=== PATIENT | female | born 1955 | race Caucasian/White ===

== ENCOUNTER 2021-01-23 09:47 | Emergency (ER) | payer MEDICARE ==
--- NOTE | 2021-01-23 09:58 | EDM.PDOC ---
ED HPI GENERAL MEDICAL PROBLEM - General Chief Complaint: Respiratory Problem Stated Complaint: PT IS HAVING A HARD TIME BREATHING Time Seen by Provider: 01/23/21 09:55 - History of Present Illness INITIAL COMMENTS - FREE TEXT/NARRATIVE: History of present illness: [] This patient has been feeling sick with headache hip pain shortness of breath and weakness since 14 January. She says on 19 January she was diagnosed positive for COVID-19. She was not vaccinated. She has had monoclonal antibody infusion already because she has COPD and is 65 years of age. The patient has a and children in her house they can help take care of her but says she has some difficulty walking because of the pain and weakness. She stopped smoking this week because it was irritating her. She has been a long-term smoker. Review of systems: As per history of present illness and below otherwise all systems reviewed and negative. Past medical history: As per history of present illness and as reviewed below otherwise noncontributory. Surgical history: As per history of present illness and as reviewed below otherwise noncontributory. Social history: No reported history of drug or alcohol abuse. Family history: As per history of present illness and as reviewed below otherwise noncontributory. Physical exam: Constitutional - well developed, well-nourished and in no acute distress HEENT - normocephalic, no evidence of trauma - external nose and mouth normal - no mass in neck and no JVD - mucosae moist EYES - full EOM, PERRL, no icterus - no evidence of inflammation, injection, or drainage Respiratory - no respiratory distress, equal bilateral expansion, lungs clear to auscultation and no abnormal lung sounds Cardiovascular - Regular Rhythm with S1 and S2 appreciated and no murmur, gallop or rub. GI - abdomen soft without distension or organomegaly - normal bowel sounds - no guard or rebound Musculoskeletal no gross deformity of long bones or joints - no tenderness, swelling or edema Neurologic - Alert and oriented times four - CN II-XII grossly intact - motor sensory and coordination symmetrically normal Psychiatric - appropriate mood and affect with normal thought content Hematologic - No petechiae or purpura - mucosa appropriate color and sclera not pale - normal nail bed color and refill Integument - no rash or evidence of trauma - normal turgor Diagnostics: [] Therapeutics: [] Impression: [] Plan: [] Definitive disposition and diagnosis as appropriate pending reevaluation and review of above. left hip Pain Score (Numeric/FACES): 6 - Related Data Allergies Allergy/AdvReac Type Severity Reaction Status Date / Time codeine Allergy Vomiting Verified 01/23/21 09:59 Penicillins Allergy Hives Verified 01/23/21 09:59 procaine HCl [From Novocain] Allergy Cannot Verified 01/23/21 09:59 Remember propoxyphene HCl Allergy Vomiting Verified 01/23/21 09:59 [From Darvon] Home Meds: Home Meds Aspirin [Ecotrin EC] 325 mg PO DAILY 04/23/14 [History] Clopidogrel [Plavix] 75 mg PO DAILY 04/23/14 [History] Diltiazem [Cardizem CD] 120 mg PO DAILY 04/23/14 [History] Pravastatin [Pravachol] 20 mg PO BEDTIME 04/23/14 [History] Ranitidine [Zantac] 150 mg PO DAILY 04/23/14 [History] oxyCODONE HCl/Acetaminophen [Percocet 10-325 MG] 1 tab PO Q6HR PRN 04/23/14 [History] levoFLOXacin [Levaquin] 500 mg PO Q24H #5 tablet 04/24/14 [Rx] ED ROS GENERAL - Review of Systems Review Of Systems: Comprehensive ROS is negative, except as noted in HPI. ED EXAM, GENERAL - Physical Exam Exam: See Below Free Text/Narrative:: My physical exam is in the HPI #1 Interpretation EKG Interpretation Comments: EKG performed 01/23/2021 at 9:59 AM sinus rhythm heart rate 85 WA 149 axis -11 inferior Q waves normal ST and T. Compared to 04/23/2014 no change impression no acute injury Course - Vital Signs Text/Narrative:: The patient clearly feels weak and sick enough that she feels like she should be on oxygen or admitted. At this point her oxygen saturation does not meet the criteria for home oxygen. She is already had monoclonal antibodies. If the patient has had a pulmonary embolus or AR or some other reason compelling us to admit the patient I am happy to do so and will leave her off oxygen and if her oxygen drops enough that she qualifies we can arrange home oxygen. Otherwise I am not sure there is much I can do other than tell her that there is no magic treatment for COVID-19 infections. This patient was seen and evaluated during the 2019 SARS-CoV-2 novel coronavirus pandemic period. Community viral transmission is ongoing at time of this encounter and the emergency department is operating under pandemic response procedures. 1440 3 PM this patient wants to be admitted and wants oxygen. She did not qualify for either. I did find a positive D-dimer and thought we might admit her for pulmonary embolus but her CT fails to reveal that. She feels miserable because of COVID-19 pneumonia. She in the community her best served if she will stay home and take care of her self unless he deteriorates. Last Recorded V/S: Last Vital Signs Temp 36.0 C L 01/23/21 13:01 Pulse 61 01/23/21 13:01 Resp 20 01/23/21 13:01 BP 125/70 01/23/21 13:01 Pulse Ox 94 L 01/23/21 13:01 - Orders/Labs/Meds Orders: Active Orders 24 hr Category Date Time Status EKG Documentation Completion [RC] AM Care 01/23/21 09:56 Active Sodium Chloride 0.9% [Saline Flush] Med 01/23/21 09:56 Active 10 ml FLUSH ASDIRECTED PRN Sodium Chloride 0.9% [Saline Flush] Med 01/23/21 09:56 Active 2.5 ml FLUSH ASDIRECTED PRN Saline Lock Insert [OM.PC] Stat Oth 01/23/21 09:56 Ordered Medication Orders Sodium Chloride (Sodium Chloride 0.9% 10 Ml Syringe) 10 ml FLUSH ASDIRECTED PRN PRN Reason: Keep Vein Open Last Admin: 01/23/21 12:58 Dose: 10 ml Documented by: Admin: 01/23/21 11:43 Dose: 10 ml Documented by: AZIZA Sodium Chloride (Sodium Chloride 0.9% 2.5 Ml Syringe) 2.5 ml FLUSH ASDIRECTED PRN PRN Reason: Keep Vein Open Last Admin: 01/23/21 12:59 Dose: 2.5 ml Documented by: Admin: 01/23/21 11:44 Dose: 2.5 ml Documented by: AZIZA Labs: Laboratory Tests 01/23/21 01/23/21 01/23/21 Range/Units 09:50 09:50 09:50 WBC 4.37 (4.0-11.0) K/uL RBC 5.71 (4.30-5.90) M/uL Hgb 17.9 H (12.0-16.0) g/dL Hct 50.8 H (36.0-46.0) % MCV 89.0 (80.0-98.0) fL MCH 31.3 (27.0-32.0) pg MCHC 35.2 (31.0-37.0) g/dL RDW Std Deviation 47.9 (28.0-62.0) fl RDW Coeff of Patt 15 (11.0-15.0) % Plt Count 108 L (150-400) K/uL MPV 10.90 (7.40-12.00) fL Neut % (Auto) 53.7 (48.0-80.0) % Lymph % (Auto) 31.4 (16.0-40.0) % [place] % (Auto) 13.0 (0.0-15.0) % Eos % (Auto) 1.4 (0.0-7.0) % Baso % (Auto) 0.5 (0.0-1.5) % Neut # (Auto) 2.4 (1.4-5.7) K/uL Lymph # (Auto) 1.4 (0.6-2.4) K/uL [place] # (Auto) 0.6 (0.0-0.8) K/uL Eos # (Auto) 0.1 (0.0-0.7) K/uL Baso # (Auto) 0.0 (0.0-0.1) K/uL Nucleated RBC % 0.0 /100WBC Nucleated RBCs # 0 K/uL D-Dimer, Quantitative 0.75 H (0.0-0.50) mg/L FEU Sodium 141 (136-145) mmol/L Potassium 3.3 L (3.5-5.1) mmol/L Chloride 102 (98-107) mmol/L Carbon Dioxide 26.7 (21.0-32.0) mmol/L BUN 7 (7.0-18.0) mg/dL Creatinine 0.9 (0.6-1.0) mg/dL Est Cr Clr Drug Dosing 54.53 mL/min Estimated GFR (MDRD) > 60.0 ml/min Glucose 122 H (74-106) mg/dL Calcium 8.2 L (8.5-10.1) mg/dL Total Bilirubin 0.4 (0.2-1.0) mg/dL AST 76 H (15-37) IU/L ALT 51 (14-63) IU/L Alkaline Phosphatase 140 H (46-116) U/L Troponin I < 0.050 (0.000-0.056) ng/mL Total Protein 7.6 (6.4-8.2) g/dL Albumin 3.4 (3.4-5.0) g/dL Globulin 4.2 H (2.6-4.0) g/dL Albumin/Globulin Ratio 0.8 L (0.9-1.6) Meds: Medications Generic Name Dose Route Start Last Admin Trade Name Freq PRN Reason Stop Dose Admin Sodium Chloride 10 ml 01/23/21 09:56 01/23/21 12:58 Sodium Chloride 0.9% 10 Ml Syringe FLUSH 10 ml ASDIRECTED PRN Administration Keep Vein Open Sodium Chloride 2.5 ml 01/23/21 09:56 01/23/21 12:59 Sodium Chloride 0.9% 2.5 Ml Syringe FLUSH 2.5 ml ASDIRECTED PRN Administration Keep Vein Open Discontinued Medications Generic Name Dose Route Start Last Admin Trade Name Freq PRN Reason Stop Dose Admin Iopamidol 75 ml 01/23/21 12:48 01/23/21 12:49 Iopamidol 755 Mg/Ml 500 Ml Multipack Bottle IVPUSH 01/23/21 12:49 75 ml ONETIME STA Administration Ketorolac Tromethamine 15 mg 01/23/21 11:58 01/23/21 12:58 Ketorolac 30 Mg/Ml Sdv IVPUSH 01/23/21 11:59 15 mg ONETIME ONE Administration Departure - Departure Time of Disposition: 14:22 Disposition: Home, Self-Care 01 Clinical Impression: Pneumonia due to COVID-19 virus, Osteoarthritis of left hip - Discharge Information Referrals: PCP,None [Ordering Only Provider] - Forms: ED Department Discharge Additional Instructions: [facility] - Primary Care [address] [place] [id number] [facility] [address] [place] [id number] The following information is given to patients seen in the emergency department who are being discharged to home. This information is to outline your options for follow-up care. We provide all patients seen in our emergency department with a follow-up referral. The need for follow-up, as well as the timing and circumstances, are variable depending upon the specifics of your emergency department visit. If you don't have a primary care physician on staff, we will provide you with a referral. We always advise you to contact your personal physician following an emergency department visit to inform them of the circumstance of the visit and for follow-up with them and/or the need for any referrals to a consulting specialist. The emergency department will also refer you to a specialist when appropriate. This referral assures that you have the opportunity for follow-up care with a specialist. All of these measure are taken in an effort to provide you with optimal care, which includes your follow-up. Under all circumstances we always encourage you to contact your private physician who remains a resource for coordinating your care. When calling for follow-up care, please make the office aware that this follow-up is from your recent emergency room visit. If for any reason you are refused follow-up, please contact the [facility] Emergency Department at and asked to speak to the emergency department charge nurse. Sepsis Event Note (ED) - Focused Exam Vital Signs: Vital Signs Temp Pulse Resp BP Pulse Ox 01/23/21 13:01 36.0 C L 61 20 125/70 94 L 01/23/21 11:41 35.8 C L 61 22 H 108/68 93 L 01/23/21 11:00 59 L 93 L 01/23/21 10:40 74 93 L 01/23/21 10:10 68 92 L 01/23/21 09:54 36.4 C 98 18 155/83 H 91 L - My Orders Last 24 Hours: My Active Orders 01/23/21 09:56 EKG Documentation Completion [RC] AM Sodium Chloride 0.9% [Saline Flush] 10 ml FLUSH ASDIRECTED PRN Sodium Chloride 0.9% [Saline Flush] 2.5 ml FLUSH ASDIRECTED PRN Saline Lock Insert [OM.PC] Stat - Assessment/Plan Last 24 Hours: My Active Orders 01/23/21 09:56 EKG Documentation Completion [RC] AM Sodium Chloride 0.9% [Saline Flush] 10 ml FLUSH ASDIRECTED PRN Sodium Chloride 0.9% [Saline Flush] 2.5 ml FLUSH ASDIRECTED PRN Saline Lock Insert [OM.PC] Stat
[2021-01-23 10:41] LABS: BLOOD UREA NITROGEN,BUN 7 mg/dL (7.0-18.0); CARBON DIOXIDE,CO2 26.7 mmol/L (21.0-32.0); CHLORIDE,CL 102 mmol/L (98-107); GLUCOSE RANDOM 122 mg/dL (74-106); POTASSIUM,K 3.3 mmol/L (3.5-5.1); SODIUM,NA 141 mmol/L (136-145)
--- NOTE | 2021-01-23 10:58 | CR ---
INDICATION: SOB. TECHNIQUE: Upright portable image of the chest. COMPARISON: None. FINDINGS: Shallow inspiration. Indistinct right apical opacity which could be due to any combination of pneumonia, atelectasis and scarring. Associated neoplasm not excluded. Vague, patchy opacity lateral mid left lung raising question of pneumonia. Streaky opacities in the mid right lung and left apex due to infiltrate, atelectasis or scarring. Apparent calcific density projected over the upper left chest. No pleural effusion. Heart size and pulmonary vasculature within normal limits. No significant bony abnormality. IMPRESSION: Nonspecific opacities in the mid and upper lungs bilaterally. Comparison with any prior exam recommended. Otherwise, CT is recommended. Dictated by Fran Atwood MD @ 01/23/2021 10:58:[address] Fran Atwood @ Jan 23 2021 10:58AM
[2021-01-23] MEDS: Sodium Chloride 0.9% 10 ML Syringe FLUSH PRN ×2 (11:43→12:58)
[2021-01-23] MEDS: Sodium Chloride 0.9% 2.5 ML Syringe FLUSH PRN ×2 (11:44→12:59)
[2021-01-23] MEDS ORDERED: Ketorolac 30 MG/ML SDV IVPUSH ONE (11:58)
[2021-01-23] MEDS ORDERED: Iopamidol 755 MG/ML 500 ML Multipack Bottle IVPUSH STA (12:48)
--- NOTE | 2021-01-23 13:25 | CR ---
Indication: Severe hip pain Technique: Pelvis and left hip 3 views Comparison: None Findings: Bones: Alignment is normal. No fractures or bone lesions. Joint spaces: Moderate left hip joint osteoarthritis. No other specific finding to explain pain. Soft tissues: Small heterotopic soft tissue ossification adjacent to the greater trochanter. Otherwise unremarkable. Dictated by Lewis Muller MD @ 01/23/2021 1:24:[address] Lewis Muller @ Jan 23 2021 1:24PM
--- NOTE | 2021-01-23 14:13 | CT ---
INDICATION: Shortness of breath. Elevated D-dimer. COMPARISON: none TECHNIQUE: CT volumetric acquisition was performed of the thorax during intravenous infusion of 75 cc Isovue 370 FINDINGS: The CT images demonstrate uniform vascular enhancement within the pulmonary arteries. There are no suspicious filling defects which would indicate pulmonary emboli. On the enlarged lymph nodes are noted within the central mediastinum. There is no evidence pericardial fluid or pleural fluid. The esophagus appears normal. The lung windows demonstrate no evidence of pneumothorax or pneumomediastinum. There are bilateral irregular soft tissue opacities and architectural distortion within the apical portions of both upper lobes as well as the lingula, anterior basal segment right lower lobe and posterior basal segment left lower lobe. The pulmonary vessels appear normal in size with no evidence of acute interstitial edema. Tiny nodular changes are noted along the visceral pleural surfaces. IMPRESSION: No evidence pulmonary thromboembolism, CHF or pneumothorax. Irregular soft tissue opacities and architectural distortion within the lungs as well as tiny perilymphatic nodules. Findings could reflect pulmonary sarcoidosis or perhaps postinflammatory changes relating to COVID-19 infection. Please note that all CT scans at this facility use dose modulation, iterative reconstruction, and/or weight-based dosing when appropriate to reduce radiation dose to as low as reasonably achievable. Dictated by Yung Lagos MD @ 01/23/2021 2:12:[address] Yung Lagos @ Jan 23 2021 2:12PM
== END 2021-01-23 15:29 | disposition home or self-care (01) ==
LOC: MW.ED 09:47
DX: U07.1 COVID-19 (principal); J12.82 Pneumonia due to coronavirus disease 2019; M16.12 Unilateral primary osteoarthritis, left hip; J44.9 Chronic obstructive pulmonary disease, unspecified; Z87.891 Personal history of nicotine dependence; Z88.5 Allergy status to narcotic agent; Z88.0 Allergy status to penicillin; Z88.4 Allergy status to anesthetic agent; Z88.8 Allergy status to other drugs, medicaments and biological substances; Z79.82 Long term (current) use of aspirin; Z79.02 Long term (current) use of antithrombotics/antiplatelets; Z79.899 Other long term (current) drug therapy
CPT/HCPCS: 36415; 71045; 71275; 73502; 80053; 84484; 85025; 85379; 93005; 96374; 99285; J1885; Q9967

== ENCOUNTER 2024-01-28 07:59 | Inpatient (IN) | payer MEDICARE ==
[2024-01-28] MEDS: cefTRIAXone 1 GM in Sodium Chloride 0.9% 50 ML IV ONE ×3 (08:41→13:27)
[2024-01-28] MEDS: Sodium Chloride 0.9% 2.5 ML Syringe FLUSH PRN (08:42)
[2024-01-28] MEDS: Sodium Chloride 0.9% 10 ML Syringe FLUSH PRN (08:42)
[2024-01-28 08:54] LABS: HEMATOCRIT 46.9 % (37.0-47.0); HEMOGLOBIN 16.4 g/dL (12.0-16.0); MEAN CORPUSCULAR HEMOGLOBIN 30.7 pg (28.0-32.0); MEAN CORPUSCULAR VOLUME 87.8 fL (83.0-99.0); MEAN PLATELET VOLUME 11.1 fL (9.4-12.3); PLATELET COUNT,PLT 163 K/uL (150-400); RED BLOOD CELL COUNT 5.34 M/uL (4.10-5.30); WHITE BLOOD CELL COUNT,WBC 9.19 K/uL (3.9-11.3)
[2024-01-28 09:31] LABS: CORONAVIRUS COVID-19 NAA NEGATIVE (NEGATIVE); INFLUENZA A NAA NEGATIVE (NEGATIVE); INFLUENZA B NAA NEGATIVE (NEGATIVE); RESPIRATORY SYNCYTIAL VIR NAA NEGATIVE (NEGATIVE)
[2024-01-28 10:08] LABS: A/G RATIO 0.5 (0.9-1.6); ALBUMIN 2.4 g/dL (3.4-5.0); BILIRUBIN TOTAL 1.4 mg/dL (0.2-1.0); CALCIUM 8.3 mg/dL (8.5-10.1); CARBON DIOXIDE,CO2 26.2 mmol/L (21.0-32.0); CREATININE 0.9 mg/dL (0.6-1.0); EST CRCL DRUG DOSING (CG) 43.57 mL/min; POTASSIUM,K 3.5 mmol/L (3.5-5.1); PROTEIN TOTAL,TP 7.2 g/dL (6.4-8.2)
[2024-01-28 10:13] LABS: LACTIC ACID 1.9 mmol/L (0.4-2.0)
[2024-01-28 10:18] LABS: BASOPHILS PERCENT MAN 0 % (0-1); EOSINOPHILS PERCENT MAN 0 % (0-6); LYMPHOCYTES ABSOLUTE MAN 2.39 K/uL (1.00-4.80); LYMPHOCYTES PERCENT MAN 26 % (24-44); MONOCYTES ABSOLUTE MAN 1.38 K/uL (0.00-0.80); MONOCYTES PERCENT MAN 15 % (0-8); SEG NEUTROPHILS ABSOLUTE MAN 5.42 K/uL (1.80-7.70); SEG NEUTROPHILS PERCENT MAN 59 % (41-71)
[2024-01-28] MEDS ORDERED: Ondansetron 4 MG/2 ML SDV IVPUSH PRN (11:27)
[2024-01-28] MEDS ORDERED: Sodium Chloride 0.9% 10 ML Syringe FLUSH PRN (11:27)
[2024-01-28] MEDS ORDERED: Docusate Sodium 100 MG Cap PO PRN (11:27)
[2024-01-28] MEDS ORDERED: Polyethylene Glycol 3350 Powder 17 GM Packet PO PRN (11:27)
[2024-01-28] MEDS ORDERED: Sodium Chloride 0.9% 2.5 ML Syringe FLUSH PRN (11:27)
[2024-01-28] MEDS: Azithromycin 500 MG in Sodium Chloride 0.9% 250 ML IV ONE (11:41)
[2024-01-28] MEDS: Furosemide 20 MG/2 ML VIAL IVPUSH ONE (11:42)
[2024-01-28] MEDS: Albuterol/Ipratropium 3.0-0.5 MG/3 ML Neb Soln NEB PRN (13:16)
[2024-01-28] MEDS: Heparin Sodium 5,000 Units/ML Vial SUBCUT SCH (13:28)
[2024-01-28] MEDS ORDERED: traMADol 50 MG Tab PO PRN (15:59)
[2024-01-28] MEDS: hydrOXYzine HCl 25 MG Tab PO SCH (20:26)
[2024-01-28] MEDS: Doxycycline 100 MG in Sodium Chloride 0.9% 100 ML IV SCH (20:28)
[2024-01-28] MEDS ORDERED: Pravastatin 40 MG Tab PO SCH (21:00)
[2024-01-29 05:41] LABS: BASOPHILS ABSOLUTE AUTO 0.05 K/uL (0.00-0.20); BASOPHILS PERCENT AUTO 0.7 % (0.0-1.0); EOSINOPHILS ABSOLUTE AUTO 0.06 K/uL (0.00-0.45); EOSINOPHILS PERCENT AUTO 0.8 % (0.0-6.0); HEMATOCRIT 41.5 % (37.0-47.0); HEMOGLOBIN 14.6 g/dL (12.0-16.0); IMMATURE GRAN ABSOLUTE AUTO 0.03 K/uL (0.00-0.05); IMMATURE GRAN PERCENT AUTO 0.4 % (0.0-0.4); LYMPHOCYTES ABSOLUTE AUTO 1.25 K/uL (1.00-4.80); LYMPHOCYTES PERCENT AUTO 17.2 % (24.0-44.0); MEAN CORPUSCULAR HEMOGLOBIN 30.8 pg (28.0-32.0); MEAN CORPUSCULAR HGB CONC 35.2 g/dL (32.0-36.0); MEAN CORPUSCULAR VOLUME 87.6 fL (83.0-99.0); MEAN PLATELET VOLUME 10.7 fL (9.4-12.3); MONOCYTES ABSOLUTE AUTO 1.24 K/uL (0.00-0.80); MONOCYTES PERCENT AUTO 17.1 % (0.0-8.0); NEUTROPHILS ABSOLUTE AUTO 4.62 K/uL (1.80-7.70); NEUTROPHILS PERCENT AUTO 63.8 % (41.0-71.0); PLATELET COUNT,PLT 144 K/uL (150-400); RED BLOOD CELL COUNT 4.74 M/uL (4.10-5.30); WHITE BLOOD CELL COUNT,WBC 7.25 K/uL (3.9-11.3)
[2024-01-29 06:01] LABS: CARBON DIOXIDE,CO2 27.2 mmol/L (21.0-32.0); CREATININE 0.8 mg/dL (0.6-1.0); EST CRCL DRUG DOSING (CG) 48.34 mL/min
[2024-01-29] MEDS: Potassium Chloride 20 MEQ Tab.ER PO SCH (06:17)
[2024-01-29] MEDS: Pravastatin 40 MG Tab PO SCH (08:39)
[2024-01-29] MEDS: Aspirin 325 MG Tab.EC PO SCH (08:40)
[2024-01-29] MEDS: Famotidine 20 MG Tab PO SCH (08:40)
[2024-01-29] MEDS: Clopidogrel 75 MG Tab PO SCH (08:40)
[2024-01-29] MEDS: cefTRIAXone 2 GM in Sodium Chloride 0.9% 50 ML IV SCH (08:40)
[2024-01-29] MEDS ORDERED: Furosemide 40 MG/4 ML VIAL IVPUSH SCH (09:00)
[2024-01-29] MEDS ORDERED: Diltiazem 120 MG Cap.CD PO SCH (09:00)
[2024-01-29 09:06] LABS: BORDETELLA PARAPERT IS1001 Not Detected (Not Detected)
[2024-01-29] MEDS: Magnesium Sulfate/Water 2 GM in Premix Bag 1 BAG IV ONE (10:12)
[2024-01-29] MEDS: Empagliflozin 10 MG Tab PO SCH (10:12)
[2024-01-29] MEDS: Magnesium Oxide 400 MG Tab PO ONE (12:11)
[2024-01-29] MEDS: Potassium Chloride 20 MEQ Tab.ER PO ONE (12:12)
[2024-01-29] MEDS ORDERED: guaiFENesin 600 MG Tab.ER PO PRN (14:53)
[2024-01-29] MEDS: Fluticasone NASAL Spray 16 GM Bottle NASBOTH SCH (16:08)
[2024-01-30 05:24] LABS: BASOPHILS ABSOLUTE AUTO 0.04 K/uL (0.00-0.20); BASOPHILS PERCENT AUTO 0.6 % (0.0-1.0); EOSINOPHILS ABSOLUTE AUTO 0.18 K/uL (0.00-0.45); EOSINOPHILS PERCENT AUTO 2.9 % (0.0-6.0); HEMATOCRIT 39.7 % (37.0-47.0); HEMOGLOBIN 13.9 g/dL (12.0-16.0); IMMATURE GRAN ABSOLUTE AUTO 0.03 K/uL (0.00-0.05); IMMATURE GRAN PERCENT AUTO 0.5 % (0.0-0.4); LYMPHOCYTES ABSOLUTE AUTO 0.84 K/uL (1.00-4.80); LYMPHOCYTES PERCENT AUTO 13.5 % (24.0-44.0); MEAN CORPUSCULAR HEMOGLOBIN 30.9 pg (28.0-32.0); MEAN CORPUSCULAR VOLUME 88.2 fL (83.0-99.0); MEAN PLATELET VOLUME 10.4 fL (9.4-12.3); MONOCYTES ABSOLUTE AUTO 1.05 K/uL (0.00-0.80); MONOCYTES PERCENT AUTO 16.9 % (0.0-8.0); NEUTROPHILS ABSOLUTE AUTO 4.07 K/uL (1.80-7.70); NEUTROPHILS PERCENT AUTO 65.6 % (41.0-71.0); PLATELET COUNT,PLT 142 K/uL (150-400); WHITE BLOOD CELL COUNT,WBC 6.21 K/uL (3.9-11.3)
[2024-01-30 05:41] LABS: CALCIUM 8.1 mg/dL (8.5-10.1); CARBON DIOXIDE,CO2 28.3 mmol/L (21.0-32.0); CREATININE 0.8 mg/dL (0.6-1.0); EST CRCL DRUG DOSING (CG) 48.34 mL/min; MAGNESIUM 1.7 mg/dL (1.8-2.4); POTASSIUM,K 3.6 mmol/L (3.5-5.1)
[2024-01-30] MEDS: Magnesium Oxide 400 MG Tab PO ONE (08:20)
[2024-01-30] MEDS: guaiFENesin 100 MG/5 ML Soln 5 ML UD Cup PO PRN (09:55)
[2024-01-30] MEDS: Benzonatate 100 MG Cap PO PRN (12:00)
[2024-01-31 05:32] LABS: BASOPHILS ABSOLUTE AUTO 0.08 K/uL (0.00-0.20); BASOPHILS PERCENT AUTO 1.2 % (0.0-1.0); EOSINOPHILS ABSOLUTE AUTO 0.33 K/uL (0.00-0.45); EOSINOPHILS PERCENT AUTO 4.8 % (0.0-6.0); HEMATOCRIT 43.8 % (37.0-47.0); HEMOGLOBIN 15.1 g/dL (12.0-16.0); IMMATURE GRAN ABSOLUTE AUTO 0.09 K/uL (0.00-0.05); IMMATURE GRAN PERCENT AUTO 1.3 % (0.0-0.4); LYMPHOCYTES ABSOLUTE AUTO 1.48 K/uL (1.00-4.80); LYMPHOCYTES PERCENT AUTO 21.4 % (24.0-44.0); MEAN CORPUSCULAR HEMOGLOBIN 30.6 pg (28.0-32.0); MEAN CORPUSCULAR HGB CONC 34.5 g/dL (32.0-36.0); MEAN CORPUSCULAR VOLUME 88.8 fL (83.0-99.0); MEAN PLATELET VOLUME 10.7 fL (9.4-12.3); MONOCYTES ABSOLUTE AUTO 1.02 K/uL (0.00-0.80); MONOCYTES PERCENT AUTO 14.8 % (0.0-8.0); NEUTROPHILS PERCENT AUTO 56.5 % (41.0-71.0); PLATELET COUNT,PLT 166 K/uL (150-400); RED BLOOD CELL COUNT 4.93 M/uL (4.10-5.30)
[2024-01-31 05:51] LABS: CALCIUM 8.2 mg/dL (8.5-10.1); CREATININE 0.9 mg/dL (0.6-1.0); EST CRCL DRUG DOSING (CG) 42.97 mL/min; MAGNESIUM 1.9 mg/dL (1.8-2.4); POTASSIUM,K 4.1 mmol/L (3.5-5.1)
[2024-01-31] MEDS ORDERED: Albuterol 0.083% 2.5 MG/3 ML Neb Soln NEB PRN (09:29)
[2024-01-31] MEDS: Lisinopril 5 MG Tab PO SCH (09:34)
[2024-01-31] MEDS: Doxycycline 100 MG Cap PO SCH (09:35)
[2024-01-31] MEDS: methylPREDNISolone Sodium Succinate 125 MG/2 ML SDV IVPUSH ONE (09:35)
[2024-01-31] MEDS: Albuterol/Ipratropium 3.0-0.5 MG/3 ML Neb Soln NEB SCH (12:04)
[2024-01-31] MEDS: methylPREDNISolone Sodium Succinate 40 MG/1 ML SDV IVPUSH SCH (20:25)
[2024-02-01 06:37] LABS: BASOPHILS ABSOLUTE AUTO 0.02 K/uL (0.00-0.20); BASOPHILS PERCENT AUTO 0.2 % (0.0-1.0); HEMATOCRIT 40.8 % (37.0-47.0); HEMOGLOBIN 13.9 g/dL (12.0-16.0); IMMATURE GRAN ABSOLUTE AUTO 0.11 K/uL (0.00-0.05); LYMPHOCYTES ABSOLUTE AUTO 0.77 K/uL (1.00-4.80); LYMPHOCYTES PERCENT AUTO 6.9 % (24.0-44.0); MEAN CORPUSCULAR HEMOGLOBIN 30.5 pg (28.0-32.0); MEAN CORPUSCULAR HGB CONC 34.1 g/dL (32.0-36.0); MEAN CORPUSCULAR VOLUME 89.5 fL (83.0-99.0); MEAN PLATELET VOLUME 10.7 fL (9.4-12.3); MONOCYTES PERCENT AUTO 4.5 % (0.0-8.0); NEUTROPHILS ABSOLUTE AUTO 9.69 K/uL (1.80-7.70); NEUTROPHILS PERCENT AUTO 87.4 % (41.0-71.0); PLATELET COUNT,PLT 168 K/uL (150-400); RED BLOOD CELL COUNT 4.56 M/uL (4.10-5.30); WHITE BLOOD CELL COUNT,WBC 11.09 K/uL (3.9-11.3)
[2024-02-01 07:00] LABS: CALCIUM 8.4 mg/dL (8.5-10.1); CARBON DIOXIDE,CO2 27.8 mmol/L (21.0-32.0); CREATININE 0.8 mg/dL (0.6-1.0); EST CRCL DRUG DOSING (CG) 48.34 mL/min; MAGNESIUM 1.8 mg/dL (1.8-2.4); POTASSIUM,K 3.6 mmol/L (3.5-5.1)
[2024-02-01] MEDS: Metoprolol Succinate 25 MG Tab.ER PO SCH (11:05)
[2024-02-02 06:05] LABS: BASOPHILS ABSOLUTE AUTO 0.02 K/uL (0.00-0.20); BASOPHILS PERCENT AUTO 0.1 % (0.0-1.0); HEMATOCRIT 39.8 % (37.0-47.0); HEMOGLOBIN 13.6 g/dL (12.0-16.0); IMMATURE GRAN PERCENT AUTO 1.2 % (0.0-0.4); LYMPHOCYTES ABSOLUTE AUTO 0.72 K/uL (1.00-4.80); LYMPHOCYTES PERCENT AUTO 4.4 % (24.0-44.0); MEAN CORPUSCULAR HEMOGLOBIN 30.8 pg (28.0-32.0); MEAN CORPUSCULAR HGB CONC 34.2 g/dL (32.0-36.0); MEAN PLATELET VOLUME 10.7 fL (9.4-12.3); MONOCYTES ABSOLUTE AUTO 0.69 K/uL (0.00-0.80); MONOCYTES PERCENT AUTO 4.3 % (0.0-8.0); PLATELET COUNT,PLT 165 K/uL (150-400); RED BLOOD CELL COUNT 4.42 M/uL (4.10-5.30); WHITE BLOOD CELL COUNT,WBC 16.23 K/uL (3.9-11.3)
[2024-02-02 06:23] LABS: CALCIUM 8.4 mg/dL (8.5-10.1); CREATININE 0.8 mg/dL (0.6-1.0); EST CRCL DRUG DOSING (CG) 48.34 mL/min; MAGNESIUM 1.9 mg/dL (1.8-2.4); POTASSIUM,K 3.9 mmol/L (3.5-5.1)
[2024-02-02] MEDS: Acetaminophen 325 MG Tab PO PRN (12:18)
== END 2024-02-02 16:10 | disposition home or self-care (01) | DRG 193 ==
LOC: MW.ED 07:59 → MW.MS 11:24
PROVIDERS: ADMIT Family Medicine; ATTEND Family Medicine
DX: J18.9 Pneumonia, unspecified organism (principal); I50.9 Heart failure, unspecified; J96.01 Acute respiratory failure with hypoxia; J44.0 Chronic obstructive pulmonary disease with (acute) lower respiratory infection; J44.1 Chronic obstructive pulmonary disease with (acute) exacerbation; Z75.8 Other problems related to medical facilities and other health care; I50.22 Chronic systolic (congestive) heart failure; I25.10 Atherosclerotic heart disease of native coronary artery without angina pectoris; Z66 Do not resuscitate; I25.2 Old myocardial infarction; E78.5 Hyperlipidemia, unspecified; I11.0 Hypertensive heart disease with heart failure; I34.0 Nonrheumatic mitral (valve) insufficiency; B34.1 Enterovirus infection, unspecified; B34.8 Other viral infections of unspecified site; E87.6 Hypokalemia; Z88.5 Allergy status to narcotic agent; Z88.0 Allergy status to penicillin; Z88.8 Allergy status to other drugs, medicaments and biological substances; Z95.5 Presence of coronary angioplasty implant and graft; Z79.02 Long term (current) use of antithrombotics/antiplatelets; Z79.899 Other long term (current) drug therapy
CPT/HCPCS: 0241U; 36415; 71045; 80048; 80053; 83605; 83735; 83880; 84132; 84484; 85025; 87040; 87070; 87205; 87486; 87581; 87633; 87899; 93005; 93306; 94640; 94667; 94668; 96365; 99285; 93010; A9270-GY; J0456; J0696; J1644; J1940; J2919; J3475; J3490; J7050; J7620-GY

== ENCOUNTER 2024-04-03 11:29 | Emergency (ER) | payer MEDICARE ==
[2024-04-03 12:16] LABS: BASOPHILS ABSOLUTE AUTO 0.11 K/uL (0.00-0.20); BASOPHILS PERCENT AUTO 1.4 % (0.0-1.0); EOSINOPHILS ABSOLUTE AUTO 0.69 K/uL (0.00-0.45); EOSINOPHILS PERCENT AUTO 8.7 % (0.0-6.0); HEMATOCRIT 46.5 % (37.0-47.0); HEMOGLOBIN 16.2 g/dL (12.0-16.0); IMMATURE GRAN ABSOLUTE AUTO 0.02 K/uL (0.00-0.05); IMMATURE GRAN PERCENT AUTO 0.3 % (0.0-0.4); LYMPHOCYTES ABSOLUTE AUTO 1.59 K/uL (1.00-4.80); LYMPHOCYTES PERCENT AUTO 20.1 % (24.0-44.0); MEAN CORPUSCULAR HGB CONC 34.8 g/dL (32.0-36.0); MEAN CORPUSCULAR VOLUME 88.9 fL (83.0-99.0); MEAN PLATELET VOLUME 10.5 fL (9.4-12.3); MONOCYTES ABSOLUTE AUTO 1.07 K/uL (0.00-0.80); MONOCYTES PERCENT AUTO 13.5 % (0.0-8.0); NEUTROPHILS ABSOLUTE AUTO 4.45 K/uL (1.80-7.70); PLATELET COUNT,PLT 152 K/uL (150-400); RED BLOOD CELL COUNT 5.23 M/uL (4.10-5.30); WHITE BLOOD CELL COUNT,WBC 7.93 K/uL (3.9-11.3)
[2024-04-03 12:51] LABS: A/G RATIO 0.7 (0.9-1.6); ALBUMIN 2.8 g/dL (3.4-5.0); BILIRUBIN TOTAL 0.8 mg/dL (0.2-1.0); CALCIUM 8.6 mg/dL (8.5-10.1); CARBON DIOXIDE,CO2 23.5 mmol/L (21.0-32.0); CREATININE 0.9 mg/dL (0.6-1.0); EST CRCL DRUG DOSING (CG) 42.97 mL/min; PROTEIN TOTAL,TP 6.9 g/dL (6.4-8.2)
[2024-04-03] MEDS: traMADol 50 MG Tab PO ONE (12:54)
[2024-04-03 13:03] LABS: APPEARANCE,URINE CLEAR; BILIRUBIN,URINE NEGATIVE (NEGATIVE); COLOR,URINE YELLOW; GLUCOSE,URINE NEGATIVE (NEGATIVE); KETONES,URINE NEGATIVE (NEGATIVE); LEUKOCYTE ESTERASE,URINE NEGATIVE (NEGATIVE); NITRITE,URINE NEGATIVE (NEGATIVE); OCCULT BLOOD,URINE NEGATIVE (NEGATIVE); PH,URINE 5.5 (5.0-8.0); PROTEIN,URINE NEGATIVE (NEGATIVE); UROBILINOGEN,URINE 0.2 EU/dL (<2.0)
== END 2024-04-03 13:27 | disposition home or self-care (01) ==
LOC: MW.ED 11:29
DX: J40 Bronchitis, not specified as acute or chronic (principal); M54.50 Low back pain, unspecified; I10 Essential (primary) hypertension; F17.210 Nicotine dependence, cigarettes, uncomplicated; Z88.0 Allergy status to penicillin; Z88.8 Allergy status to other drugs, medicaments and biological substances; Z75.8 Other problems related to medical facilities and other health care; Z79.82 Long term (current) use of aspirin; Z79.899 Other long term (current) drug therapy; Z90.49 Acquired absence of other specified parts of digestive tract; Z90.710 Acquired absence of both cervix and uterus
CPT/HCPCS: 36415; 71045; 80053; 81003; 85025; 99283; A9270

== ENCOUNTER 2024-04-08 12:15 | Emergency (ER) | payer MEDICARE ==
[2024-04-08] MEDS: oxyCODONE 5 MG Tab PO STA (14:32)
[2024-04-08] MEDS: Ondansetron 4 MG Tab.DIS PO STA (14:33)
[2024-04-08] MEDS: Acetaminophen 500 MG Tab PO STA (14:33)
== END 2024-04-08 16:09 | disposition home or self-care (01) ==
LOC: MW.ED 12:15
DX: M25.552 Pain in left hip (principal); I10 Essential (primary) hypertension; I25.2 Old myocardial infarction; J44.9 Chronic obstructive pulmonary disease, unspecified; Z79.82 Long term (current) use of aspirin; Z90.49 Acquired absence of other specified parts of digestive tract; Z90.710 Acquired absence of both cervix and uterus; Z88.0 Allergy status to penicillin; Z88.8 Allergy status to other drugs, medicaments and biological substances; Z88.5 Allergy status to narcotic agent; Z75.8 Other problems related to medical facilities and other health care
CPT/HCPCS: 73502; 99283; A9270